=== PATIENT | female | born 1975 ===

== ENCOUNTER 2024-12-11 22:03 | Emergency (ER) | payer OTHER, SELFPAY ==
[2024-12-11 22:20] VITALS: BP 143/71; PULSE 80; RESP 16; TEMP 36.8; O2SAT 98; BMI 177.6
[2024-12-11 23:02] LABS: Amphetamine Screen Urine Not Detected (Not Detect); Barbiturates, Urine Not Detected (Not Detect); Benzodiazepines Screen Urine Not Detected (Not Detect); Buprenorphine Scr Not Detected (Not Detect); Cannabinoid Screen Urine Not Detected (Not Detect); Cocaine Screen Urine Not Detected (Not Detect); Fentanyl, urine Not Detected (Not Detect); Methadone Screen, Urine Not Detected (Not Detect); Opiate Screen Urine Not Detected (Not Detect); Oxycodone Screen Urine Not Detected (Not Detect); Phencyclidine Screen Urine Not Detected (Not Detect)
--- NOTE | 2024-12-11 23:32 | ED.GENADULT ---
HPI - General Adult General Chief complaint: General Medical Stated complaint: drug testing Time Seen by Provider: 12/11/24 23:30 Source: patient Limitations: no limitations History of Present Illness ED Provider: Lakisha Alvarenga PA-C HPI narrative: 49-year-old female presents requesting a drug screen. 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 She would like testing to prove that she is not. Related Data Allergies Allergy/AdvReac Type Severity Reaction Status Date / Time amoxicillin Allergy Rash Verified 12/11/24 22:27 Review of Systems Review of Systems: Yes all other systems are reviewed and are negative Constitutional: Constitutional: Denies fatigue and Denies fever(s) Cardiovascular: Cardiovascular: Denies chest pain and Denies dyspnea Respiratory: Respiratory: Denies dyspnea Gastrointestinal: Gastrointestinal: Denies abdominal pain, Denies nausea and Denies vomiting Endocrine: Endocrine: Denies fatigue [facility] Past Medical History Attestation statement: The following information was validated with the patient. Social History Social History Do you have a plan to hurt others: No Plan Physical Exam ED Vital Signs: Vital Signs - 24 hr 12/11/24 22:20 Temperature 98.3 F Pulse Rate 80 Respiratory Rate 16 Blood Pressure 143/71 H Pulse Oximetry 98 Oxygen Delivery Method Room Air BMI result Body Mass Index 177.6 Const Other: Alert Orientation/consciousness: patient oriented x3 Resp Effort & Inspection: normal respiratory effort Cardio Other: Normal peripheral perfusion Skin Other: Warm dry no rash Neuro General: patient oriented x3, gait normal, no focal motor deficits and CN's II-XI intact bilaterally Psych Other: Cooperative Medical Decision Making Medical Decision Making [facility] Narrative: 49-year-old female presents requesting a drug screen. 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 She would like testing to prove that she is not. U tox and ethanol ordered from triage everything is negative Lab Data Labs: Lab Results 12/11/24 12/11/24 Range/Units 22:45 23:28 Urine Opiates Screen Not Detected (Not Detect) Ur Buprenorphine Scrn Not Detected (Not Detect) ng/mL Ur Oxycodone Screen Not Detected (Not Detect) ng/mL Urine Methadone Screen Not Detected (Not Detect) ng/mL Urine Fentanyl Screen Not Detected (Not Detect) Ur Barbiturates Screen Not Detected (Not Detect) Ur Phencyclidine Scrn Not Detected (Not Detect) Ur Amphetamines Screen Not Detected (Not Detect) U Benzodiazepines Scrn Not Detected (Not Detect) Urine Cocaine Screen Not Detected (Not Detect) U Marijuana (THC) Screen Not Detected (Not Detect) Ethyl Alcohol < 10 mg/dL Discharge Plan Discharge Clinical Impression: Negative urine drug test Patient Disposition: Home, Self-Care Additional Instructions: I am providing you with a copy of the toxicology screening that we did. Everything was negative.
[2024-12-11 23:47] LABS: Ethanol < 10 mg/dL
[2024-12-12 00:21] VITALS: BP 143/71; PULSE 80; RESP 16; TEMP 36.8; O2SAT 98
== END 2024-12-12 00:22 | disposition home or self-care (01) ==
PROVIDERS: Emergency Provider Emergency Medicine
DX: Z01.89 Encounter for other specified special examinations (principal)
CPT/HCPCS: 36415; 80307; 99283; 99284

== ENCOUNTER 2025-03-02 10:54 | Emergency (ER) | payer OTHER, SELFPAY ==
[2025-03-02 11:03] VITALS: BP 184/93; PULSE 79; RESP 16; TEMP 36.4; O2SAT 97; BMI 25.5
--- NOTE | 2025-03-02 11:12 | ED.GENADULT ---
HPI - General Adult General Chief complaint: Skin/Abscess/Foreign Body Stated complaint: Rash- R Front Side/ Back, Allergy Med. Not Working Time Seen by Provider: 03/02/25 11:11 Source: patient, family, RN notes reviewed, old records reviewed and admissions advisor Mode of arrival: ambulatory Limitations: language barrier History of Present Illness ED Provider: Lupe HPI narrative: 49-year-old female presents for evaluation of a rash. She reports a rash to her right flank for the last 6 days. She states it is itching and burning. She has been using his steroid cream that her significant other gave her She has also been using an allergy medication without significant improvement. Denies any fevers or chills Related Data Previous Rx's ?Medication ?Instructions ?Recorded prednisone 20 mg tablet 40 mg (2 x 20 mg) PO DAILY #10 tabs 03/02/25 valacyclovir 1 gram tablet 1,000 mg PO TID #21 tabs 03/02/25 (Valtrex) Allergies Allergy/AdvReac Type Severity Reaction Status Date / Time amoxicillin Allergy Rash Verified 12/11/24 22:27 doxycycline Allergy Hives Verified 03/02/25 11:05 Review of Systems Integumentary/Breasts: Skin/Breast: Reports rash PMFSH Social History Social History Advance Directives: No Advance Directives Information Provided: Yes Do you have a plan to hurt others: No Plan Physical Exam ED Vital Signs: Vital Signs - 24 hr 03/02/25 11:03 03/02/25 12:04 Temperature 97.5 F 97.5 F Pulse Rate 79 79 Respiratory Rate 16 16 Blood Pressure 184/93 H 184/93 H Pulse Oximetry 97 97 Oxygen Delivery Method Room Air Room Air BMI result Body Mass Index 25.5 Skin Other: Scattered clusters of vesicles in the right flank following a dermatome pattern. Medical Decision Making Medical Decision Making [facility] Narrative: 49-year-old female presents for evaluation of a rash for the last 6 days. She has scattered vesicles consistent with shingles in a dermatome pattern. We will treat with valacyclovir and prednisone. Differential Diagnosis Differential Diagnoses: The differential diagnosis associated with the presentation includes Shingles Herpes zoster Varicella zoster Cellulitis Dermatitis Discharge Plan Discharge Clinical Impression: Shingles Patient Disposition: Home, Self-Care Instructions: Shingles (ED) Additional Instructions: Your rash is most consistent with the shingles virus Take the prednisone and valacyclovir as prescribed This can be contagious You should not be around any very young children or elderly adult You may use Tylenol as needed for pain Follow-up with your primary doctor, return for new or worsening symptoms Prescriptions: New prednisone 20 mg tablet 40 mg PO DAILY Qty: 10 0RF valacyclovir [Valtrex] 1 gram tablet 1,000 mg PO TID Qty: 21 0RF Interventions: ED Discharge Assessment Last Done: 03/02/25 12:04 Discharge Date/Time: 03/02/25 12:04 Print Language: Cymro
[2025-03-02 12:04] VITALS: BP 184/93; PULSE 79; RESP 16; TEMP 36.4; O2SAT 97
--- OUTSIDE RECORDS SUMMARY | 2025-03-02 13:13 | XMS_ITS | Encounter Summary ---
Author Organization [employer] [facility] Address [address] [place] [address] [address] [place] [address] Care Team Providers Care Gallery Or Museum Attendant Name Role Phone Orly MercerHNP Primary Care Provider Cassie Peres MD Primary Care Provider [phone] Reason for Visit * Reason Comments Med Refill Encounter Details Date Type Department Care Team (Late st Contact Info) Description 07/14/2023 Refill OB/Family Planning [address] [place] [address] Alanis Nixon NP [address] [place] [address] Social History Tobacco Use Types Packs/Day Years Used Date Smoking Tobacco: Never Smokeless Tobacco: Never Alcohol Use Standard Drinks/Week Comments Never 0 (1 standard drink = 0.6 oz pur e alcohol) Alcohol Answer Date Recorded How often do you have a drink containing alcohol ? 0 04/18/2023 How many drinks containing a lcohol do you have on a typical day when you are drinking? 0 04/18/2023 How often do you have six or more drinks on one occasion? 0 04/18/2023 Depression Answer Date Recorded Patient Health Questionnaire-2 Score 0 04/18/2023 Comments Unknown Sex and Gender Information Value Date Recorded Sex Assigned at Female 07/12/2022 5:57 PM EDT Legal Sex Female 5:57 PM EDT Gender Identity Female 07/12/2022 5:57 PM EDT Sexual Orientation Choose not to disclose 2022 8:59 AM EDT documented as of this encounter Miscellaneous Notes * Telephone Encounter - Alanis Nixon NP - 07/18/2023 10:49 AM EDT Approving, but needs appt for additional refills. documented in this encounter Plan of Treatment Not on file documented as of this encounter Visit Diagnoses Not on filedocumented in this encounter Care Teams Gallery [employer] Museum Attendant Relationship Specialty Start Date End Date Orly Mercer PMHNP [address] [place] [address] PCP - General 09/15/21 07/26/24 Cassie Peres MD [address] [place] [address] PCP - General Internal Medicine 07/27/24 documented as of this encounter
== END 2025-03-02 12:04 | disposition home or self-care (01) ==
PROVIDERS: Emergency Provider Emergency Medicine; PCP Internal Medicine
DX: B02.9 Zoster without complications (principal)
CPT/HCPCS: 99282; 99283